=== PATIENT | female | born 1990 ===

== ENCOUNTER 2022-03-22 16:52 | Outpatient (CLI) | payer MEDICAID ==
[2022-03-22 19:21] VITALS: BP 120/82
== END 2022-03-22 19:43 | disposition home or self-care (01) ==
LOC: LAB 16:52 → APU 18:18 → LAB 19:43
PROVIDERS: ATTEND Obstetrics & Gynecology
DX: O26.893 Other specified pregnancy related conditions, third trimester (principal); Z67.11 Type A blood, Rh negative; Z3A.29 29 weeks gestation of pregnancy
CPT/HCPCS: 86850; 86900; 86901; 96372; J2790